=== PATIENT | female | born 1990 ===

== ENCOUNTER 2025-10-10 15:23 | Outpatient (CLI) | payer BC, SELFPAY ==
--- NOTE | ~2025-10-10 | MM_ITS ---
EXAMINATION: MM screening ros BI w meng HISTORY: Screening TECHNIQUE: Craniocaudal and mediolateral oblique 3-D tomosynthesis images were obtained and synthetic 2-D images were generated. CAD analysis was submitted and interpreted. COMPARISON: Baseline BREAST PARENCHYMAL COMPOSITION: Dense: The breasts are heterogeneously dense, which may obscure small masses. FINDINGS: There is no evidence of suspicious mass, calcification, or architectural distortion to suggest malignancy in either breast. IMPRESSION: 1. No mammographic evidence of malignancy. 2. Recommend routine screening mammography in one year. BI-RADS Category 1: Negative Reviewed, dictated and finalized at location A. ICITY WRITER
--- OUTSIDE RECORDS SUMMARY | 2025-10-10 17:54 | XMS_ITS | Encounter Summary ---
Author Organization [facility] Healthcare Address [address] [place] [address] Care Team Providers Care Sludge Filtration Operator Name Role Phone Robert Morales MD Unavailable [phone] Kate Bunch NP Primary Care Provider [phone] Encounter Details Date Type Department Care Team (Late st Contact Info) Description 10/10/2025 Results Follow-Up [facility] [address] [place] [address] [address] [place] [address] Jessica Mccullough NP [address] [place] [id number] Pap, reflex HPV Social History Tobacco Use Types Packs/Day Years Used Date Smoking Tobacco: Never Passive Smoke Exposure: Never Smokeless Tobacco: Never Alcohol Use Standard Drinks/Week Comments No 0 (1 standard drink = 0.6 oz pur e alcohol) Humiliation, Afraid, Rape, and Kick questionnair e Answer Date Recorded Within the last year, have y ou been afraid of your partner or ex-partner? No 09/14/2022 Within the last year, have y ou been humiliated or emotionally abused in other ways by your partner or ex-partner? No Within the last year, have y ou been kicked, hit, slapped, or otherwise physically hurt by your partner or ex-partner? No 09/14/2022 Within the last year, have y ou been raped or forced to have any kind of sexual activity by your partner or ex-partner? No 09/14/2022 PHQ-2 Answer Date Recorded PHQ-2 Total Score (If total score is 3 or more points, staff should administer the PHQ-9) 0 10/05/2025 PHQ-9 Answer Date Recorded PHQ-9 Total Score 24 01/17/2025 Comments Unknown Sex and Gender Information Value Date Recorded Sex Assigned at Not on file Legal Sex Female 11:28 PM CUT OUT MACHINE OPERATOR Gender Identity Not on file Sexual Orientation Not on file documented as of this encounter Plan of Treatment Not on file documented as of this encounter Visit Diagnoses Not on filedocumented in this encounter Care Teams Sludge Filtration Operator Relationship Specialty Start Date End Date Kate Bunch NP [address] [place] [address] PCP - General Family Medicine 11/16/23 Robert Morales MD [address] [facility] [address] [place] [address] [employer] Ironworker Obstetrics and Gynecology 12/04/20 documented as of this encounter
--- OUTSIDE RECORDS SUMMARY | 2025-10-10 17:55 | XMS_ITS | Clinical Summary ---
Author Organization [facility] Medical Office Building [address] Address [address] [place] [address] Care Team Providers Care Principal Gifts Officer Name Role Phone Robert Morales MD Unavailable [phone] Kate Bunch NP Primary Care Provider [phone] Allergies No known active allergies Medications miscellaneous medical supply misc 1 each 2 (two) times a day Use blood pressure monitor to check Blood pressure twice daily 1 each 4 Active fluconazole (DIFLUCAN) 150 mg tablet Take one tablet and repeat in 3 days. 2 tablet 4 Active Additional Information Patient not taking.Reported on 10/05/2025 busPIRone (BUSPAR) 5 mg tabletIndicati ons:Generalize d Anxiety Disorder Take 1 tablet (5 mg total) by mouth 2 (two) times a day 180 tablet 2 5 Active drospirenone-e thinyl estradioL (PATRCIIA,GIANVI) 3-0.02 mg per tablet Take 1 tablet by mouth daily 84 tablet 2 5 10/05/20 26 Active drospirenone-e thinyl estradioL (PATRICIA,GIANVI) 3-0.02 mg per tablet Take 1 tablet by mouth daily 84 tablet 2 5 10/05/20 25 Discontin ued(Reord er) busPIRone (BUSPAR) 5 mg tabletIndicati ons:HARJINDER (generalized anxiety disorder) TAKE 1 TABLET(5 MG) BY MOUTH TWICE DAILY 200 tablet 1 5 10/05/20 25 Discontin ued(Reord er) busPIRone (BUSPAR) 5 mg tabletIndicati ons:HARJINDER (generalized anxiety disorder) Take 1 tablet (5 mg total) by mouth 2 (two) times a day 200 tablet 1 5 10/05/20 25 Discontin ued(Dupli yaakov order) drospirenone-e thinyl estradioL (PATRICIA,GIANVI) 3-0.02 mg per tablet Take 1 tablet by mouth daily 84 tablet 2 5 10/05/20 25 Discontin ued(Reord er) Active Problems Problem Noted Date Diagnosed Date mood disturbance 01/22/2025 HARJINDER (generalized anxiety disorder) 01/17/2025 Assessment & Plan (10/05/2025 2:01 PM BRIQUETTING MACHINE OPERATOR): Encouraged to continue on BuSpar b.i.d.. We will plan to attempt referral for counseling. I will work on completing paperwork for her to continue working remotely as it is in my professional opinion this has a great impact on her mental health. Vitamin D deficiency 09/20/2020 Dermatitis 05/26/2018 Assessment & Plan (05/26/2018 8:43 AM CDT): Inflammatory in nature, oral steroid dose-daina trial and a topical steroid ointment. Referred to dermatology for further eval/tx. Resolved Problems Problem Noted Date Diagnosed Date Resolved Date Vaginal delivery 02/04/2021 38 weeks gestation of 02/04/2021 Encounters Date Type Department Care Team Description 10/10/2025 Results Follow-Up [address] [address] Jessica Mccullough NP Pap, reflex HPV 10/05/2025 10:15 AM BRIQUETTING MACHINE OPERATOR Office Visit [facility] at [address] [address] Jessica Mccullough NP Well woman exam (Primary Dx); HARJINDER (generalized anxiety disorder); Oral contraceptive pill surveillance from Last 3 Months Immunizations Immunization Administration Dates Next Due Influenza, Quadrivalent, Spl it, Preservative Free, Intramuscular 09/17/2020 Tdap 11/05/2020 Medical History Medical History Date Comments HARJINDER (generalized anxiety disorder) 01/17/2025 Vitamin D deficiency 09/20/2020 Family History Medical History Relation Name Comments Diabetes Father Diabetes mellit us; Hypertension Father Hypertension; Breast cancer Maternal Grandmother Cancer , breast; Ovarian cancer Maternal Grandmother Cance r, ovarian; Relation Name Status Comments Father Maternal Grandmother Social History Tobacco Use Types Packs/Day Years [...] on file Legal Sex Female 11:28 PM BRIQUETTING MACHINE OPERATOR Gender Identity Not on file Sexual Orientation Not on file Obstetrics History Para Term AB IAB SAB Ectopic Multiple Livin g Live Births 1 1 1 0 0 0 0 0 0 1 1 Date Outcome GA Total Labor Labor/2nd/3rd Weight Sex Type Anes PTL Roslyn A1 A5 Name Clin 2020 Term 38w 4d 2h 26m 1h 23m/0h 49m/0h 14m 3.59 kg (7 lb 14.6 oz) M Vag-S pont Epidur al N Livin g 9 9 SILVE Y,BOY RAKEL Morales , Robert Martinez MD Complications:Precipitous La bor (<3 hours) Delivery Location:This Fac[facility] ([facility]) Last Filed Vital Signs Vital Sign Reading Time Taken Comments Blood Pressure 150/100 10/05/2025 10:27 AM BRIQUETTING MACHINE OPERATOR Pulse 88 01/17/2025 12:54 PM CDT Temperature 37.4 C (99.3 F) 01/17/2025 12:54 PM CDT Respiratory Rate 18 01/17/2025 12:54 PM CDT Oxygen Saturation 98% 01/17/2025 12:54 PM CDT Inhaled Oxygen Concentration - - Weight 67 kg (147 lb 11.2 oz) 10/05/2025 10:27 A M BRIQUETTING MACHINE OPERATOR Height 170.2 cm (5' 7) 01/17/2025 12:54 PM CDT Body Mass Index 23.13 01/17/2025 12:54 PM CDT Plan of Treatment Health Maintenance Due Date Last Done Comments Varicella Vaccines (1 of 2 - 13+ 2-dose series) 2003 Hepatitis B Screening 01/29/2008 HPV Vaccines (1 - 3-dose SCDM series) 2017 Cervical Cancer Screening 10/05/20262024, 09/24/2023, 09/14/2022, Additional history exists Depression Screening 10/05/2026 10/05/2025, 01/17/2025, 01/17/2025, Additional history exists Regular Well Visit/Exam 18-64 10/05/2026 10/05/2025, 09/29/2024, 09/24/2023, Additional history exists DTaP/Tdap/Td Vaccine (2 - Td or Tdap) 11/05/2030 11/05/2020 Hepatitis C Screening Completed 05/30/2020 Influenza Vaccine Discontinued 09/17/2020 Pneumococcal vaccine <65 Aged Out No longer eligible based on patient's age to complete this topic Procedures Procedure Name Priority Date/Time Associated Diagnosis Comments PAP, REFLEX HPV Routine 10/05/2025 10:31 AM BRIQUETTING MACHINE OPERATOR Well woman exam HEPATITIS C ANTIBODY Routine 05/30/2020 9:25 AM CDT from Last 3 Months or Most Recently Relevant to Health Maintenance Results * Pap, reflex HPV (10/05/2025 10:31 AM BRIQUETTING MACHINE OPERATOR) CLINICAL INFORMATION: Whit Dillon Comment:A LMP Whit Dillon Comment:A Previous Pap Whit Dillon Comment:NONE GIVEN Prev. Bx Whit Dillon Comment:NONE GIVEN SOURCE: Whit Dillon Comment:Cervix, Endocervix Pap, specimen adequacy Whit Dillon Comment: Satisfactory for evaluation. Endocervical/transformation zone component present. Age and/or menstrual status not provided HPV interp Whit Dillon Comment: Cytology Results: Negative for intraepithelial lesion or malignancy. COMMENTS Whit Dillon Comment: This Pap test has been evaluated with the GoSpotCheckPrep(R) Imaging System. Paper Stripper [facility] st Kendrick Dillon Comment: TLS, CT(ASCP) CT Screening Location: [place] [address] [address] [place] [address] CLIA: [id number] Slide preparation performed at: [facility], [address] [place] [address], [address] CLIA: [id number] Comment Whit Dillon Comment: EXPLANATORY NOTE: The Pap is a screening test for cervical cancer. It is not a diagnostic test and is subject to false negative and false positive results. It is most reliable when a satisfactory sample, regularly obtained, is submitted with relevant clinical findings and history, and when the Pap result is evaluated along with historic and current clinical information. Thin prep 10/05/2025 10:3 1 AM BRIQUETTING MACHINE OPERATOR 10/07/2025 11:56 PM BRIQUETTING MACHINE OPERATOR us Jessica Mccullough CUSTOMER ACQUISITION SPECIALIST LAB CYTOLOGY ORDERABLES Fin al Result [facility] [address] [address] [place] [address] * Hepatitis C antibody (05/30/2020 9:25 AM CDT) Hep C Ab Nonreactive Nonreactive [facility] ([facility]) Comment: Interpretive Data Nonreactive: Antibodies to HCV not detected. Does NOT exclude the possibility of recent exposure to HCV. Equivocal: Equivocal for HCV antibodies. Supplemental molecular testing will be automatically performed to determine infection status in accordance with current CDC screening recommendations. Reactive: Positive for HCV antibodies. This may represent current or past HCV infection. Supplemental molecular testing will be automatically performed to determine current infection status in accordance with current CDC screening recommendations. Interpretive data was last revised on 2020. Testing performed by: [facility], [address] [place] [address]., [id number] Blood specimen (specimen) 05/30/2020 9:25 AM CDT 05/30/2020 5:07 PM CDT Robert Morales MD LAB MICROBIOLOGY - GENERAL ORDERABLES Final Result [facility] [address] [facility] Department [place] [address] from Last 3 Months or Most Recently Relevant to Health Maintenance Insurance [facility] Advance Directives For more information, please contact: [phone] * Full Code (Latest Code Status on File) Date Activated Date Inactivated Comments 12/03/2020 6:34 AM 12/05/2020 6:18 PM Full CPR in c ase of cardiopulmonary arrest Care Teams Principal Gifts Officer Relationship Specialty Start Date End Date Kate Bunch CUSTOMER ACQUISITION SPECIALIST [address] [facility] [address] [place] [address] PCP - General Family Medicine 11/16/23 Robert Morales MD [address] [place] [address] [address] [place] [address] Paper Hanger Obstetrics and Gynecology 12/04/20
== END 2025-10-10 15:24 | disposition home or self-care (01) ==
LOC: CHSIMG 15:26
PROVIDERS: PCP Surgery Plastic and Reconstructive Surgery; Visit Provider Surgery Plastic and Reconstructive Surgery
DX: Z12.31 Encounter for screening mammogram for malignant neoplasm of breast (principal)
CPT/HCPCS: 77063; 77067